=== PATIENT | male | born 1995 | race American Indian/Alaskan Native ===

== ENCOUNTER 2020-11-12 12:55 | Emergency (ER) | payer OTHER ==
[2020-11-12 13:14] VITALS: BP 145/93
--- NOTE | 2020-11-12 13:17 | Event Note ---
ED Screening Note Date of service: 11/12/20 Time: 13:16 ED Screening Note: Patient presents from [facility] with complaints of seizure yesterday He is currently staying at [facility] for SI He denies prior history of seizures He states he has had some mid back pain since falling from the seizure No headache or vision changes per patient This initial assessment/diagnostic orders/clinical plan/treatment(s) is/are subject to change based on patients health status, clinical progression and re- assessment by fellow clinical providers in the ED. Further treatment and workup at subsequent clinical providers discretion. Patient/guardian urged not to elope from the ED as their condition may be serious if not clinically assessed and managed. Initial orders include: Labs
[2020-11-12 13:49] LABS: Basophils % (Auto) 0.4 % (0.0-1.8); Eosinophils # (Auto) 0.1 K/mm3 (0.0-0.4); Eosinophils % (Auto) 0.7 % (0.0-4.3); Hematocrit 41.2 % (35.5-45.6); Hemoglobin 13.7 gm/dl (11.8-15.2); Lymphocytes # (Auto) 1.6 K/mm3 (1.2-5.4); Lymphocytes % (Auto) 14.3 % (13.4-35.0); Mean Corpuscular HGB Conc 33 % (32-34); Mean Corpuscular Volume 83 fl (84-94); Monocytes # (Auto) 0.7 K/mm3 (0.0-0.8); Monocytes % (Auto) 6.1 % (0.0-7.3); Platelet Count 223 K/mm3 (140-440); Red Blood Count 4.98 M/mm3 (3.65-5.03); Red Cell Distribution Width 14.3 % (13.2-15.2)
--- NOTE | 2020-11-12 13:53 | XRay Report ---
EXAMINATION: Lumbar spine radiograph series, 3 views, 11/12/2020 CLINICAL INFORMATION: Back pain after fall COMPARISON: None. FINDINGS: There is normal alignment of the lumbar vertebral bodies. Vertebral body height and intervertebral di sc spaces appear well maintained. No significant bony degenerative changes are noted. A left-sided ureteral stent is present. There is a 1.5 cm left renal calculus. IMPRESSION: 1. No radiographic evidence of acute bony abnormality of the lumbar spine. Signer Name: Yvonne Hoffman MD Signed: 11/12/2020 1:48 PM Workstation Name: [id number]
[2020-11-12 14:04] LABS: Alanine Aminotransferase 52 units/L (7-56); Albumin 4.7 g/dL (3.9-5); BUN/Creatinine Ratio 10; Blood Urea Nitrogen 8 mg/dL (9-20); Calcium 9.4 mg/dL (8.4-10.2); Hemolysis Index 10
[2020-11-12 14:16] LABS: Bilirubin,Urine NEG (Negative); Blood,Urine LG (Negative); Color,Urine Yellow (Yellow); Mucus,Urine FEW /HPF
[2020-11-12 14:21] LABS: Amphetamine Screen,Urine Negative; Benzodiazepines Screen,Urine Negative; Cocaine Screen,Urine Negative; Methadone Screen,Urine Negative; Opiate Screen,Urine Negative
[2020-11-12 14:24] LABS: RBC,Urine < 182.0 /HPF (0.0-6.0)
[2020-11-12 14:41] LABS: Cannabinoid Screen,Urine PRESUMPTIVE POSITIVE
[2020-11-12] MEDS ORDERED: LIDOCAINE-MPF (1%) 10 MG/1 ML VIAL 5 ML INFILTRATI ONE (16:07)
--- NOTE | 2020-11-12 16:12 | Emergency Department Report ---
ED General Adult HPI - General Chief complaint: Seizure Stated complaint: SEIZURE Time Seen by Provider: 11/12/20 13:15 Source: patient, EMS Mode of arrival: Stretcher Limitations: No Limitations - History of Present Illness Initial comments: Patient is a 24-year-old male who presents emergency room with complaints of a possible seizure that occurred yesterday. Patient is currently at 1013 at [facility] and his back supported by a sitter for [place]. The person with the patient did not witness the seizure. Patient states he has never had a sei zure before. He states that he was just told by the staff it appeared to be a seizure. He states he did bite his tongue but denies urinary incontinence. He denies any headache or neck pain. He states he does have lower back pain. He denies any vomiting, diarrhea, abdominal pain, dysuria, hematuria, penile discharge, pain or swelling in the testicles. He has a past medical history of an arm fracture and nephrolithiasis. He states his last kidney stone was approximately 3 months ago. He states that his back pain does not feel related to kidney stones he states he believes it is due to having a seizure and falling onto his back. He states that he was diagnosed with a UTI at a [facility] on 11/09/2020, he states that he is on antibiotics but is not sure what he is taking, his sitter is attempting to contact [place] to see what medication he is on. He endorses marijuana use. - Related Data Previous Rx's Medication Instructions Recorded Last Taken Type Ciprofloxacin HCl [Ciprofloxacin 500 mg PO BID 7 Days #14 tab 11/12/20 Unknown Rx TAB] Doxycycline Hyclate [Doxycycline 100 mg PO BID 7 Days #14 tab 11/12/20 Unknown Rx Hyclate TAB] Naproxen [EC-Naprosyn] 500 mg PO BID PRN #14 tablet. 11/12/20 Unknown Rx Allergies Allergy/AdvReac Type Severity Reaction Status Date / Time No Known Allergies Allergy Unverified 11/12/20 13:11 ED Review of Systems ROS: Stated complaint: SEIZURE Other details as noted in HPI Comment: All other systems reviewed and negative ED Past Medical Hx - Past Medical History Previous Medical History?: No - Surgical History Past Surgical History?: No - Social History Smoking Status: Current Every Day Smoker - Medications Home Medications: Home Medications Medication Instructions Recorded Confirmed Last Taken Type Ciprofloxacin HCl [Ciprofloxacin 500 mg PO BID 7 Days #14 tab 11/12/20 Unknown Rx TAB] Doxycycline Hyclate [Doxycycline 100 mg PO BID 7 Days #14 tab 11/12/20 Unknown Rx Hyclate TAB] Naproxen [EC-Naprosyn] 500 mg PO BID PRN #14 tablet. 11/12/20 Unknown Rx ED Physical Exam - General Limitations: No Limitations General appearance: alert, in no apparent distress - Head Head exam: Present: atraumatic, normocephalic - Eye Eye exam: Present: normal appearance - ENT ENT exam: Present: mucous membranes moist, other (superificial tongue abrasion to the right side of the tongue) - Neck Neck exam: Present: normal inspection, full ROM. Absent: tenderness - Respiratory Respiratory exam: Present: normal lung sounds bilaterally. Absent: respiratory distress, wheezes, rales, rhonchi, stridor, chest wall tenderness, accessory muscle use, decreased breath sounds, prolonged expiratory - Cardiovascular Cardiovascular Exam: Present: regular rate, normal rhythm, normal heart sounds. Absent: systolic murmur, diastolic murmur, rubs, gallop - Back Exam Back exam: Present: normal inspection, full ROM. Absent: CVA tenderness (R), CVA tenderness (L), paraspinal tenderness, vertebral tenderness - Neurological Exam Neurological exam: Present: alert, oriented X3, CN II-XII intact, normal gait. Absent: motor sensory deficit - Psychiatric Psychiatric exam: Present: normal affect, normal mood - Skin Skin exam: Present: warm, dry, intact ED Course Vital Signs 11/12/20 13:10 Temperature 98.7 F Pulse Rate 98 H Respiratory 16 Rate Blood Pressure 145/93 O2 Sat by Pulse 100 Oximetry ED Medical Decision Making - Lab Data Result diagrams: 11/12/20 13:27 11/12/20 13:27 Lab Results 11/12/20 11/12/20 11/12/20 Range/Units 13:27 13:27 Unknown WBC 11.2 H (4.5-11.0) K/mm3 RBC 4.98 (3.65-5.03) M/mm3 Hgb 13.7 (11.8-15.2) gm/dl Hct 41.2 (35.5-45.6) % MCV 83 L (84-94) fl MCH 28 (28-32) pg MCHC 33 (32-34) % RDW 14.3 (13.2-15.2) % Plt Count 223 (140-440) K/mm3 Lymph % (Auto) 14.3 (13.4-35.0) % [place] % (Auto) 6.1 (0.0-7.3) % Eos % (Auto) 0.7 (0.0-4.3) % Baso % (Auto) 0.4 (0.0-1.8) % Lymph # (Auto) 1.6 (1.2-5.4) K/mm3 [place] # (Auto) 0.7 (0.0-0.8) K/mm3 Eos # (Auto) 0.1 (0.0-0.4) K/mm3 Baso # (Auto) 0.0 (0.0-0.1) K/mm3 Seg Neutrophils % 78.5 H (40.0-70.0) % Seg Neutrophils # 8.8 H (1.8-7.7) K/mm3 Sodium 139 (137-145) mmol/L Potassium 4.1 (3.6-5.0) mmol/L Chloride 101.9 (98-107) mmol/L Carbon Dioxide 27 (22-30) mmol/L Anion Gap 14 mmol/L BUN 8 L (9-20) mg/dL Creatinine 0.8 (0.8-1.3) mg/dL Estimated GFR > 60 ml/min BUN/Creatinine Ratio 10 % Glucose 121 H (75-100) mg/dL Calcium 9.4 (8.4-10.2) mg/dL Magnesium 1.90 (1.7-2.3) mg/dL Total Bilirubin 0.50 (0.1-1.2) mg/dL AST 63 H (5-40) units/L ALT 52 (7-56) units/L Alkaline Phosphatase 81 (35-129) units/L Total Protein 7.3 (6.3-8.2) g/dL Albumin 4.7 (3.9-5) g/dL Albumin/Globulin Ratio 1.8 % Urine Color Yellow (Yellow) Urine Turbidity Clear (Clear) Urine pH 6.0 (5.0-7.0) Ur Specific [place] 1.019 (1.003-1.030) Urine Protein 100 mg/dl (Negative) mg/dL Urine Glucose (UA) Neg (Negative) mg/dL Urine Ketones Neg (Negative) mg/dL Urine Blood Lg (Negative) Urine Nitrite Neg (Negative) Urine Bilirubin Neg (Negative) Urine Urobilinogen 2.0 (<2.0) mg/dL Ur Leukocyte Esterase Lg (Negative) Urine WBC (Auto) 18.0 H (0.0-6.0) /HPF Urine RBC (Auto) < 182.0 (0.0-6.0) /HPF U Epithel Cells (Auto) 1.0 (0-13.0) /HPF Urine Mucus Few /HPF Urine Opiates Screen Urine Methadone Screen Ur Barbiturates Screen Ur Phencyclidine Scrn Ur Amphetamines Screen U Benzodiazepines Scrn Urine Cocaine Screen U Marijuana (THC) Screen Drugs of Abuse Note 11/12/20 Range/Units Unknown WBC (4.5-11.0) K/mm3 RBC (3.65-5.03) M/mm3 Hgb (11.8-15.2) gm/dl Hct (35.5-45.6) % MCV (84-94) fl MCH (28-32) pg MCHC (32-34) % RDW (13.2-15.2) % Plt Count (140-440) K/mm3 Lymph % (Auto) (13.4-35.0) % [place] % (Auto) (0.0-7.3) % Eos % (Auto) (0.0-4.3) % Baso % (Auto) (0.0-1.8) % Lymph # (Auto) (1.2-5.4) K/mm3 [place] # (Auto) (0.0-0.8) K/mm3 Eos # (Auto) (0.0-0.4) K/mm3 Baso # (Auto) (0.0-0.1) K/mm3 Seg Neutrophils % (40.0-70.0) % Seg Neutrophils # (1.8-7.7) K/mm3 Sodium (137-145) mmol/L Potassium (3.6-5.0) mmol/L Chloride (98-107) mmol/L Carbon Dioxide (22-30) mmol/L Anion Gap mmol/L BUN (9-20) mg/dL Creatinine (0.8-1.3) mg/dL Estimated GFR ml/min BUN/Creatinine Ratio % Glucose (75-100) mg/dL Calcium (8.4-10.2) mg/dL Magnesium (1.7-2.3) mg/dL Total Bilirubin (0.1-1.2) mg/dL AST (5-40) units/L ALT (7-56) units/L Alkaline Phosphatase (35-129) units/L Total Protein (6.3-8.2) g/dL Albumin (3.9-5) g/dL Albumin/Globulin Ratio % Urine Color (Yellow) Urine Turbidity (Clear) Urine pH (5.0-7.0) Ur Specific [place] (1.003-1.030) Urine Protein (Negative) mg/dL Urine Glucose (UA) (Negative) mg/dL Urine Ketones (Negative) mg/dL Urine Blood (Negative) Urine Nitrite (Negative) Urine Bilirubin (Negative) Urine Urobilinogen (<2.0) mg/dL Ur Leukocyte Esterase (Negative) Urine WBC (Auto) (0.0-6.0) /HPF Urine RBC (Auto) (0.0-6.0) /HPF U Epithel Cells (Auto) (0-13.0) /HPF Urine Mucus /HPF Urine Opiates Screen Negative Urine Methadone Screen Negative Ur Barbiturates Screen Negative Ur Phencyclidine Scrn Negative Ur Amphetamines Screen Negative U Benzodiazepines Scrn Negative Urine Cocaine Screen Negative U Marijuana (THC) Screen Presumptive positive Drugs of Abuse Note Disclamer - Radiology Data Radiology results: report reviewed Ordering Physician: DANIEL AVALOS Date of Service: 11/12/20 Procedure(s): CT head/brain wo con Accession Number(s): [id number] cc: DANIEL AVALOS CT BRAIN: 11/12/2020 INDICATION / CLINICAL INFORMATION: Seizure. COMPARISON: None available. FINDINGS: BRAIN/INTRACRANIAL STRUCTURES: Unenhanced CT images of the brain demonstrate no evidence of acute intracranial abnormality. Ventricles and sulci are normal in size and shape. There is no evidence of ischemic injury, hemorrhage, or mass. There are no abnormal extra-axial fluid collections. EXTRACRANIAL STRUCTURES: Unremarkable. IMPRESSION: Negative unenhanced CT of the brain. All CT scans at this location are performed using dose reduction to ALARA by means of automated exposure control. Signer Name: German Vickers MD Signed: 11/12/2020 4:44 PM Workstation Name: [id number] Transcribed By: DANIEL Dictated By: German Vickers MD Electronically Authenticated By: German Vickers MD Signed Date/Time: 11/12/20 1644 DD/ 1643 TD/TT: Ordering Physician: MARI LEON Date of Service: 11/12/20 Procedure(s): XR spine lumbosacral 2-3V Accession Number(s): [id number] cc: MARI LEON Fluoro Time In Minutes: EXAMINATION: Lumbar spine radiograph series, 3 views, 11/12/2020 CLINICAL INFORMATION: Back pain after fall COMPARISON: None. FINDINGS: There is normal alignment of the lumbar vertebral bodies. Vertebral body height and intervertebral disc spaces appear well maintained. No significant bony degenerative changes are noted. A left-sided ureteral stent is present. There is a 1.5 cm left renal calculus. IMPRESSION: 1. No radiographic evidence of acute bony abnormality of the lumbar spine. Signer Name: Yvonne Hoffman MD Signed: 11/12/2020 1:48 PM Workstation Name: [id number] Transcribed By: ELA Dictated By: Yvonne Hoffman MD Electronically Authenticated By: Yvonne Hoffman MD Signed Date/Time: 11/12/20 1348 DD/ 1347 TD/TT: - Medical Decision Making Patient is a 24-year-old male who presents emergency room with complaints of a possible seizure that occurred yesterday. Patient is currently at 1013 at [place] and his back supported by a sitter for [place]. The person with the patient did not witness the seizure. Patient states he has never had a seizure before. He states that he was just told by the staff it appeared to be a seizure. He states he did bite his tongue but denies urinary incontinence. He denies any headache or neck pain. He states he does have lower back pain. He denies any vomiting, diarrhea, abdominal pain, dysuria, hematuria, penile discharge, pain or swelling in the testicles. He has a past medical history of an arm fracture and nephrolithiasis. He states his last kidney stone was approximately 3 months ago. He states that his back pain does not feel related to kidney stones he states he believes it is due to having a seizure and falling onto his back. He states that he was diagnosed with a UTI at a [facility] on 11/09/2020, he states that he is on antibiotics but is not sure what he is taking, his sitter is attempting to contact [place] to see what m edication he is on. He endorses marijuana use. No CVA tenderness on exam, no midline or paraspinal C-spine, T-spine, L-spine tenderness palpation, no step- offs, no deformities, no focal neuro deficits, superificial tongue abrasion to the right side of the tongue. XR lumbar spine: 1. No radiographic evidence of acute bony abnormality of the lumbar spine. CT head: Negative unenhanced CT of the brain. Labs are stable. UA shows red blood cells and white blood cells. Red blood cells likely secondary to history of ureteral stent. Discussed all results with patient and answered questions. This is patient's first seizure, will not start seizure medication at this time, discussed the importance of neurology follow-up, discussed return precautions. Will treat patient for UTI. Patient given 1 g Rocephin while in the emergency department. Patient given prescription for naproxen, ciprofloxacin, doxycycline. Advised patient Please stop taking the previous antibiotic you are on. Please take medication as prescribed. Increase your water intake. Please avoid marijuana use. Follow-up with a primary care doctor. Follow-up with a neurologist. You are unable to operate a motor vehicle for 6 months after having seizure-like activity and until you have been cleared by primary care doctor or neurologist. Return to emergency room for any new or worsening symptoms. - Differential Diagnosis seizure, drug use, UTI, nephrolithiasis, muscle strain, mass, CVA, ICH Critical care attestation.: If time is entered above; I have spent that time in minutes in the direct care of this critically ill patient, excluding procedure time. ED Disposition Clinical Impression: Seizure UTI (urinary tract infection) Qualifiers: Urinary tract infection type: acute cystitis Hematuria presence: with hematuria Qualified Code(s): N30.01 - Acute cystitis with hematuria Back pain Qualifiers: Back pain location: low back pain Chronicity: acute Back pain laterality: unspecified Sciatica presence: without sciatica Qualified Code(s): M54.5 - Low back pain Disposition: DC-01 TO HOME OR SELFCARE Is pt being admited?: No Does the pt Need Aspirin: No Condition: Stable Instructions: Urinary Tract Infection, Adult, [id number], Seizure, Adult, Seizure, Adult, [id number] Additional Instructions: Please stop taking the previous antibiotic you are on. Please take medication as prescribed. Increase your water intake. Please avoid marijuana use. Follow-up with a primary care doctor. Follow-up with a neurologist. You are unable to operate a motor vehicle for 6 months after having seizure-like act ivity and until you have been cleared by primary care doctor or neurologist. Return to emergency room for any new or worsening symptoms. Prescriptions: Ciprofloxacin HCl [Ciprofloxacin TAB] 500 mg PO BID 7 Days #14 tab Doxycycline Hyclate [Doxycycline Hyclate TAB] 100 mg PO BID 7 Days #14 tab Naproxen [EC-Naprosyn] 500 mg PO BID PRN #14 tablet.dr SOUSA Reason: pain Referrals: PRIMARY MD KARINE [Primary Care Provider] - 2-3 Days ALEXANDER DUNN MD [Staff Physician] - 2-3 Days [facility] [Provider Group] - 2-3 Days [facility], [LAB/CONTRACT] - 2-3 Days WILLARD DAVID MD [Referring] - 2-3 Days Time of Disposition: 17:09 Print Language: MOSOTHO
--- NOTE | 2020-11-12 16:49 | Cat Scan Report ---
CT BRAIN: 11/12/2020 INDICATION / CLINICAL INFORMATION: Seizure. COMPARISON: None available. FINDINGS: BRAIN/INTRACRANIAL STRUCTURES: Unenhanced CT images of the brain demonstrate no evidence of acute int racranial abnormality. Ventricles and sulci are normal in size and shape. There is no evidence of ischemic injury, hemorrhage, or mass. There are no abnormal extra-axial fluid collections. EXTRACRANIAL STRUCTURES: Unremarkable. IMPRESSION: Negative unenhanced CT of the brain. All CT scans at this location are performed using dose reduction to ALARA by means of automated expos ure control. Signer Name: German Vickers MD Signed: 11/12/2020 4:44 PM Workstation Name: [id number]
== END 2020-11-12 17:32 | disposition home or self-care (01) ==
LOC: ED 12:55
DX: G40.909 Epilepsy, unspecified, not intractable, without status epilepticus (principal); N39.0 Urinary tract infection, site not specified; M54.9 Dorsalgia, unspecified; F17.200 Nicotine dependence, unspecified, uncomplicated; Z79.899 Other long term (current) drug therapy
CPT/HCPCS: 36415; 70450; 72100; 80053; 80307; 81001; 83735; 85025; 87086; 96372; 99284; J0696

== ENCOUNTER 2021-09-05 07:51 | Emergency (ER) | payer SELFPAY ==
[2021-09-05] MEDS ORDERED: LORazepam 2 MG/ML VIAL IM ONE (08:00)
[2021-09-05] MEDS ORDERED: ZIPRASIDONE MESYLATE 20 MG VIAL IM ONE (08:00)
--- NOTE | 2021-09-05 08:16 | Emergency Department Report ---
HPI - General Time Seen by Provider: 09/05/21 07:59 - HPI HPI: This patient initially presented by EMS with the complaint of suicidal ideations with a plan to cut his wrist. Per EMS the patient had admitted to some type of psychiatric history and medication noncompliance. Immediately upon arrival to our emergency department the patient jumped off the EMS gurney and began making homicidal threats to the ER staff saying "I'm going to kill you all." He then proceeded to grab things off of the counter along the emergency department and threw them across the department. He did this while he began walking towards the back of the emergency department towards, and possibly into, some of the other patients rooms. The patient then was witnessed getting a fire extinguisher off of the wall and discharging/firing its contents. While the patient has been in this emergency department previously, he was not here with any psychiatric complaints at that time and I did not see any listed diagnosis of psychiatric conditions. ED Past Medical Hx - Social History Smoking Status: Current Every Day Smoker - Medications Home Medications: Home Medications Medication Instructions Recorded Confirmed Last Taken Type Unobtainable 09/05/21 09/05/21 Unknown History ED Review of Systems ROS: Stated complaint: AGGRESSIVE/THREATNING/SUICIDAL Other details as noted in HPI Comment: Unobtainable due to pts medical conditions Physical Exam - Physical Exam Physical Exam: GENERAL: The patient is well-developed well-nourished. HENT: Normocephalic. Atraumatic. Patient has moist mucous membranes. EYES: Extraocular motions are intact. NECK: Supple. Trachea is midline. CHEST/LUNGS: Clear to auscultation. There is no respiratory distress noted. HEART/CARDIOVASCULAR: Regular. There is no tachycardia. There is no murmur. ABDOMEN: Abdomen is soft, nontender. Patient has normal bowel sounds. SKIN: Skin is warm and dry. NEURO: The patient is awake, but uncooperative. No slurred speech. MUSCULOSKELETAL: There is no tenderness or deformity. There is no limitation range of motion. PSYCH: Patient is violent and agitated. Patient is screaming. ED Medical Decision Making - Lab Data Result diagrams: 09/05/21 09:45 09/05/21 09:45 Lab Results 09/05/21 09/05/21 09/05/21 Range/Units 09:45 09:45 09:45 WBC 8.0 (4.5-11.0) K/mm3 RBC 4.37 (3.65-5.03) M/mm3 Hgb 12.0 (11.8-15.2) gm/dl Hct 37.4 (35.5-45.6) % MCV 86 (84-94) fl MCH 27 L (28-32) pg MCHC 32 (32-34) % RDW 14.0 (13.2-15.2) % Plt Count 231 (140-440) K/mm3 Lymph % (Auto) 18.1 (13.4-35.0) % [place] % (Auto) 5.7 (0.0-7.3) % Eos % (Auto) 0.8 (0.0-4.3) % Baso % (Auto) 0.2 (0.0-1.8) % Lymph # (Auto) 1.5 (1.2-5.4) K/mm3 [place] # (Auto) 0.5 (0.0-0.8) K/mm3 Eos # (Auto) 0.1 (0.0-0.4) K/mm3 Baso # (Auto) 0.0 (0.0-0.1) K/mm3 Seg Neutrophils % 75.2 H (40.0-70.0) % Seg Neutrophils # 6.0 (1.8-7.7) K/mm3 Sodium 139 (137-145) mmol/L Potassium 4.0 (3.6-5.0) mmol/L Chloride 105.2 (98-107) mmol/L Carbon Dioxide 22 (22-30) mmol/L Anion Gap 16 mmol/L BUN 16 (9-20) mg/dL Creatinine 0.8 (0.8-1.3) mg/dL Estimated GFR > 60 ml/min BUN/Creatinine Ratio 20 % Glucose 146 H (75-100) mg/dL Calcium 9.2 (8.4-10.2) mg/dL Plasma/Serum Alcohol < 0.01 (0-0.07) % - Medical Decision Making This patient initially called EMS due to suicidal ideations. Immediately upon arrival to the emergency department he became agitated and violent and began making homicidal threats. For these reasons the patient was made a 1013 and placed on ED hold. Once we were able to bailon the patient into a seclusion room he was given appropriate treatment/sedation. Labs thus far have been unremarkable including CBC, metabolic panel and blood alcohol level. We are still waiting for a urine sample for urinalysis and UDS. Vital signs were reassuring including being afebrile. We will continue to monitor this patient during his ED course. Critical Care Time: Yes Critical care time in (mins) excluding proc time.: 35 Critical care attestation.: If time is entered above; I have spent that time in minutes in the direct care of this critically ill patient, excluding procedure time. Critical care time spent on this patient in doing his initial evaluation, IM antipsychotic and antianxiety medications for treatment/sedation of his acute psychosis and violent behavior, calling [facility], ordering and interpretation of labs, multiple reevaluations while in seclusion. Critical Care Time: 35 minutes ED Disposition Clinical Impression: Suicidal ideations, Homicidal ideations, Acute psychosis Disposition: [address] [place] [address] Is pt being admited?: Yes Condition: Stable Time of Disposition: 15:11
[2021-09-05 10:27] LABS: Basophils % (Auto) 0.2 % (0.0-1.8); Eosinophils # (Auto) 0.1 K/mm3 (0.0-0.4); Eosinophils % (Auto) 0.8 % (0.0-4.3); Hematocrit 37.4 % (35.5-45.6); Lymphocytes # (Auto) 1.5 K/mm3 (1.2-5.4); Lymphocytes % (Auto) 18.1 % (13.4-35.0); Mean Corpuscular HGB Conc 32 % (32-34); Mean Corpuscular Volume 86 fl (84-94); Monocytes # (Auto) 0.5 K/mm3 (0.0-0.8); Monocytes % (Auto) 5.7 % (0.0-7.3); Platelet Count 231 K/mm3 (140-440); Red Blood Count 4.37 M/mm3 (3.65-5.03)
[2021-09-05 10:37] LABS: BUN/Creatinine Ratio 20; Blood Urea Nitrogen 16 mg/dL (9-20); Calcium 9.2 mg/dL (8.4-10.2); Hemolysis Index 4
--- NOTE | 2021-09-05 14:15 | Consultation ---
History of Present Illness - Reason for Consult Consult date: 09/05/21 Reason for consult: mental health evaluation - History of Present Psychiatric Illness ED Note:This patient initially presented by EMS with the complaint of suicidal ideations with a plan to cut his wrist. Per EMS the patient had admitted to some type of psychiatric history and medication noncompliance. Immediately upon arrival to our emergency department the patient jumped off the EMS gurney and began making homicidal threats to the ER staff saying "I'm going to kill you all." He then proceeded to grab things off of the counter along the emergency department and threw them across the department. He did this while he began walking towards the back of the emergency department towards, and possibly into, some of the other patients rooms. The patient then was witnessed trying to get a fire extinguisher off of the wall. While the patient has been in this emergency department previously, he was not here with any psychiatric complaints at that time and I did not have any listed diagnosis of psychiatric conditions. The patient was seen this morning in seclusion. Per nurse, patient was recently given IM INJ. Patient is drowsy, unable to assess at this time. PAST PSYCHIATRIC HISTORY: Unable to assess PAST MEDICAL HISTORY: Unable to assess Family Psychiatric History: Unable to assess SOCIAL HISTORY:Unable to assess REVIEW OF SYSTEMS:Unable to assess MENTAL STATUS EXAMINATION: Unable to assess Assessment and Plan (1) Unspecified mood disorder- F31.9 Status: Acute Current Visit: No Status: Acute RECOMMENDATIONS continue 1013 Risks, benefits and alternatives of medications discussed with the patient, questions answered and consent obtained from patient. PSYCHOTHERAPY: Supportive psychotherapy provided MEDICAL: Per primary team DELIRIUM PRECAUTIONS: Please re-orient patient frequently, keep lights on during the day, and minimize benzodiazepines and opiates as these medications could worsen patient's confusion. TRACK REPAIR LABORER: non indicated DISPOSITION: Recommend acute inpatient psychiatric hospitalization at this time. Case discussed with Dr. Jaeger. FOLLOW-UP: Will follow. Thank you for the consult. Please contact with any questions and/or concerns. Medications and Allergies Allergies Allergy/AdvReac Type Severity Reaction Status Date / Time No Known Allergies Allergy Unverified 11/12/20 13:11 Home Medications Medication Instructions Recorded Confirmed Last Taken Type Unobtainable 09/05/21 09/05/21 Unknown History Mental Status Exam - Vital signs Last Vital Signs Temp 98.3 F 09/05/21 08:31 Pulse 82 11/02/21 08:31 Resp 20 09/05/21 08:31 BP 141/100 09/05/21 08:31 Pulse Ox 99 09/05/21 08:31 Results Result Diagrams: 09/05/21 09:45 09/05/21 09:45 Abnormal lab results 09/05/21 09/05/21 Range/Units 09:45 09:45 MCH 27 L (28-32) pg Seg Neutrophils % 75.2 H (40.0-70.0) % Glucose 146 H (75-100) mg/dL All other labs normal.
[2021-09-05 18:16] LABS: Bacteria,Urine 2+ /HPF (Negative); Bilirubin,Urine NEG (Negative); Blood,Urine LG (Negative); Color,Urine Yellow (Yellow); Mucus,Urine 1+ /HPF; Urobilinogen,Urine < 2.0 mg/dL (<2.0)
[2021-09-05 18:20] LABS: Amphetamine Screen,Urine PRESUMPTIVE NEGATIVE; Benzodiazepines Screen,Urine PRESUMPTIVE NEGATIVE; Cannabinoid Screen,Urine PRESUMPTIVE POSITIVE; Cocaine Screen,Urine PRESUMPTIVE NEGATIVE; Methadone Screen,Urine PRESUMPTIVE NEGATIVE; Opiate Screen,Urine PRESUMPTIVE NEGATIVE
[2021-09-05 18:22] LABS: RBC,Urine > 182.0 /HPF (0.0-6.0)
[2021-09-06] MEDS ORDERED: ZIPRASIDONE MESYLATE 20 MG VIAL IM ONE ×3 (01:37→18:46)
[2021-09-06] MEDS ORDERED: diphenhydrAMINE 50 MG/ML VIAL IM ONE (01:37)
[2021-09-06] MEDS ORDERED: LIDOCAINE-MPF (1%) 10 MG/1 ML VIAL 5 ML INFILTRATI ONE (01:38)
[2021-09-06] MEDS ORDERED: AZITHROMYCIN 250 MG TAB PO ONE (01:38)
[2021-09-06] MEDS ORDERED: WATER FOR INJ Sterile (PF) 10 ML ONE ×2 (01:43→18:48)
--- NOTE | 2021-09-06 10:18 | Emergency Department Report ---
Blank Doc - Documentation Documentation: This morning, the patient is cooperative. He is conversant. He is ambulatory to the restroom. We are still awaiting psychiatric disposition. It has been determined he requires admission. We will continue to provide supportive care. He will undergo chemical sedation as needed to keep him from becoming belligerent and attacking staff. We will await psychiatric disposition. Labs have been reviewed.
[2021-09-06] MEDS: cephALEXin 500 MG CAP PO SCH ×3 (10:40→20:59)
--- NOTE | 2021-09-06 10:56 | Progress Note ---
Subjective - Reason for Consult Consult date: 09/06/21 Reason for consult: suicidal ideation - Chief Complaint Chief complaint: The patient was seen this morning , he is calm. he reports hat he got into an argument with his mother, when he woke up the voices started telling him to kill himself. He endorses being depressed states symptoms such as isolating himself, castillo, suicidal ideation and insomnia. He reports having suicidal ideation with a plan to " slit his wrist." he admits having auditory and visual hallucinations. " I see angels and demons." PAST PSYCHIATRIC HISTORY Diagnoses: Bipolar, Schizophrenia Suicide attempts or Self-harm behavior: Yes Prior psychiatric hospitalizations: Yes Substance Abuse history: marijuana Previous psychiatric medications tried: Unable to recall Outpatient treatment: denies PAST MEDICAL HISTORY: Family Psychiatric History: None reported or documented SOCIAL HISTORY Marital Status: Single Living Arrangements:Homeless Employment Status: Unemployed Access to guns/weapons:Denies Education: 9th grade History of Abuse: None reported Legal History: Unknown REVIEW OF SYSTEMS Constitutional: Negative for weight loss ENT: Negative for stridor Respiratory: Negative for cough or hemoptysis All other systems reviewed and are negative MENTAL STATUS EXAMINATION General Appearance and Behavior: Age appropriate, good hygiene, wearing appropriate clothes, good eye contact, cooperative with questioning Cooperation: Participating/engaged Psychomotor Behavior: unremarkable and within normal limits Mood:depressed Affect and affective range: congruent with mood Thought Process:goal directed Thought Content: suicidal Speech: Normal volume, Regular rate and rhythm. Intellectual Functioning: Average Suicidal Ideation: Yes Homicidal Ideation: Denies Hallucinations: auditory/visual Delusions: None elicited Impulse Control: Limited Insight and Judgment: limited insight and poor judgment Memory: Normal Attention: Normal Orientation: Alert, oriented. Assessment and Plan (1) Schizoaffective Disorder Current Visit: No Status: Acute RECOMMENDATIONS Continue 1013 Start Seroquel 25 mg po BID Start Depakote 125mg po BID Risks, benefits and alternatives of medications discussed with the patient, questions answered and consent obtained from patient. PSYCHOTHERAPY: Supportive psychotherapy provided MEDICAL: Per primary team DELIRIUM PRECAUTIONS: Please re-orient patient frequently, keep lights on during the day, and minimize benzodiazepines and opiates as these medications could worsen patient's confusion. ACCOUNTING ANALYST: non indicated DISPOSITION: Recommend acute inpatient psychiatric hospitalization at this time. FOLLOW-UP: Will follow. Thank you for the consult. Please contact with any questions and/or concerns. Medications and Allergies Mental Status Exam - Vital signs Last Vital Signs Temp 97.9 F 09/06/21 08:06 Pulse 77 09/06/21 08:06 Resp 18 09/06/21 08:06 BP 131/90 09/06/21 08:06 Pulse Ox 98 09/06/21 08:55
[2021-09-06] MEDS: DIVALPROEX DR 125 MG TAB PO SCH ×2 (12:27→22:04)
[2021-09-06] MEDS: QUEtiapine 25 MG TAB PO SCH ×2 (12:27→22:04)
[2021-09-06] MEDS ORDERED: LORazepam 2 MG/ML VIAL IM ONE (23:28)
[2021-09-07] MEDS ORDERED: ZIPRASIDONE MESYLATE 20 MG VIAL IM ONE (01:31)
[2021-09-07] MEDS ORDERED: WATER FOR INJ Sterile (PF) 10 ML ONE (01:37)
[2021-09-07] MEDS ORDERED: HALOPERIDOL LACTATE 5 MG/1 ML INJ IM PRN (07:33)
[2021-09-07] MEDS ORDERED: diphenhydrAMINE 25 MG CAP PO PRN (07:33)
[2021-09-07] MEDS ORDERED: LORazepam 2 MG/ML VIAL IM PRN (07:33)
--- NOTE | 2021-09-07 07:39 | Event Note ---
Date: 09/07/21 The patient was evaluated in the emergency department for symptoms described in the history of present illness. He/she was evaluated in the context of the global COVID-19 pandemic, which necessitated consideration that the patient might be at risk for infection with the virus that causes COVID-19. Institutional protocols and algorithms that pertain to the evaluation of patients at risk for COVID-19 are in a state of rapid change based on information released by regulatory bodies including the CDC and federal and state organizations. These policies and algorithms were followed during the patient's care in the emergency department. Please note that these policies, procedures and recommendations changed on a rapid basis. Laboratory studies, vital signs, nursing documentation, ER documentation, and psychiatric documentation are reviewed and appreciated. Nursing team reports that patient is defecating in his room, and smearing feces on the wall. They also report that the patient is masturbating and ejaculating, and at times, licking his ejaculate. Ozul-[id number] evaluation is requested. At this point in time, the patient is si tting down, eating a meal tray, in no acute distress. He is breathing comfortably, and moving 4 extremities. The patient is obese with a body mass index of 31.3. Patient will be changed to clear liquid diet. The patient was deemed medically suitable for psychiatric disposition and placement during his initial ER evaluation. The patient continues to remain medically suitable for psychiatric placement and disposition. He is currently pending psychiatric placement. Vital Signs 09/05/21 09/06/21 09/06/21 08:31 08:06 08:55 Temperature 98.3 F 97.9 F Pulse Rate 82 77 Respiratory 20 18 Rate Blood Pressure 141/100 Blood Pressure 131/90 [Right] O2 Sat by Pulse 99 98 98 Oximetry 09/06/21 09/06/21 10:54 20:03 Temperature 98.4 F Pulse Rate 97 H Respiratory 18 Rate Blood Pressure Blood Pressure 137/92 [Right] O2 Sat by Pulse 98 98 Oximetry Lab Results 09/05/21 09/05/21 09/05/21 Range/Units 09:45 09:45 09:45 WBC 8.0 (4.5-11.0) K/mm3 RBC 4.37 (3.65-5.03) M/mm3 Hgb 12.0 (11.8-15.2) gm/dl Hct 37.4 (35.5-45.6) % MCV 86 (84-94) fl MCH 27 L (28-32) pg MCHC 32 (32-34) % RDW 14.0 (13.2-15.2) % Plt Count 231 (140-440) K/mm3 Lymph % (Auto) 18.1 (13.4-35.0) % Nolan % (Auto) 5.7 (0.0-7.3) % Eos % (Auto) 0.8 (0.0-4.3) % Baso % (Auto) 0.2 (0.0-1.8) % Lymph # (Auto) 1.5 (1.2-5.4) K/mm3 Nolan # (Auto) 0.5 (0.0-0.8) K/mm3 Eos # (Auto) 0.1 (0.0-0.4) K/mm3 Baso # (Auto) 0.0 (0.0-0.1) K/mm3 Seg Neutrophils % 75.2 H (40.0-70.0) % Seg Neutrophils # 6.0 (1.8-7.7) K/mm3 Sodium 139 (137-145) mmol/L Potassium 4.0 (3.6-5.0) mmol/L Chloride 105.2 (98-107) mmol/L Carbon Dioxide 22 (22-30) mmol/L Anion Gap 16 mmol/L BUN 16 (9-20) mg/dL Creatinine 0.8 (0.8-1.3) mg/dL Estimated GFR > 60 ml/min BUN/Creatinine Ratio 20 % Glucose 146 H (75-100) mg/dL Calcium 9.2 (8.4-10.2) mg/dL Urine Color (Yellow) Urine Turbidity (Clear) Urine pH (5.0-7.0) Ur Specific [place] (1.003-1.030) Urine Protein (Negative) mg/dL Urine Glucose (UA) (Negative) mg/dL Urine Ketones (Negative) mg/dL Urine Blood (Negative) Urine Nitrite (Negative) Urine Bilirubin (Negative) Urine Urobilinogen (<2.0) mg/dL Ur Leukocyte Esterase (Negative) Urine WBC (Auto) (0.0-6.0) /HPF Urine RBC (Auto) (0.0-6.0) /HPF U Epithel Cells (Auto) (0-13.0) /HPF Urine Bacteria (Auto) (Negative) /HPF Urine Mucus /HPF Urine Yeast (Budding) /HPF Urine Opiates Screen Urine Methadone Screen Ur Barbiturates Screen Ur Phencyclidine Scrn Ur Amphetamines Screen U Benzodiazepines Scrn Urine Cocaine Screen U Marijuana (THC) Screen Drugs of Abuse Note Plasma/Serum Alcohol < 0.01 (0-0.07) % Coronavirus (PCR) (Negative) 09/05/21 09/05/21 09/05/21 Range/Units 10:20 Unknown Unknown WBC (4.5-11.0) K/mm3 RBC (3.65-5.03) M/mm3 Hgb (11.8-15.2) gm/dl Hct (35.5-45.6) % MCV (84-94) fl MCH (28-32) pg MCHC (32-34) % RDW (13.2-15.2) % Plt Count (140-440) K/mm3 Lymph % (Auto) (13.4-35.0) % Nolan % (Auto) (0.0-7.3) % Eos % (Auto) (0.0-4.3) % Baso % (Auto) (0.0-1.8) % Lymph # (Auto) (1.2-5.4) K/mm3 Nolan # (Auto) (0.0-0.8) K/mm3 Eos # (Auto) (0.0-0.4) K/mm3 Baso # (Auto) (0.0-0.1) K/mm3 Seg Neutrophils % (40.0-70.0) % Seg Neutrophils # (1.8-7.7) K/mm3 Sodium (137-145) mmol/L Potassium (3.6-5.0) mmol/L Chloride (98-107) mmol/L Carbon Dioxide (22-30) mmol/L Anion Gap mmol/L BUN (9-20) mg/dL Creatinine (0.8-1.3) mg/dL Estimated GFR ml/min BUN/Creatinine Ratio % Glucose (75-100) mg/dL Calcium (8.4-10.2) mg/dL Urine Color Yellow (Yellow) Urine Turbidity Slightly-cloudy (Clear) Urine pH 6.0 (5.0-7.0) Ur Specific [place] 1.020 (1.003-1.030) Urine Protein 30 mg/dl (Negative) mg/dL Urine Glucose (UA) Neg (Negative) mg/dL Urine Ketones Neg (Negative) mg/dL Urine Blood Lg (Negative) Urine Nitrite Neg (Negative) Urine Bilirubin Neg (Negative) Urine Urobilinogen < 2.0 (<2.0) mg/dL Ur Leukocyte Esterase Lg (Negative) Urine WBC (Auto) 123.0 H (0.0-6.0) /HPF Urine RBC (Auto) > 182.0 (0.0-6.0) /HPF U Epithel Cells (Auto) 1.0 (0-13.0) /HPF Urine Bacteria (Auto) 2+ (Negative) /HPF Urine Mucus 1+ /HPF Urine Yeast (Budding) 2+ /HPF Urine Opiates Screen Presumptive negative Urine Methadone Screen Presumptive negative Ur Barbiturates Screen Presumptive negative Ur Phencyclidine Scrn Presumptive negative Ur Amphetamines Screen Presumptive negative U Benzodiazepines Scrn Presumptive negative Urine Cocaine Screen Presumptive negative U Marijuana (THC) Screen Presumptive positive Drugs of Abuse Note Disclamer Plasma/Serum Alcohol (0-0.07) % Coronavirus (PCR) Negative (Negative)
[2021-09-07 08:04] VITALS: BP 151/90
[2021-09-07] MEDS: cephALEXin 500 MG CAP PO SCH (09:51)
[2021-09-07] MEDS: DIVALPROEX DR 125 MG TAB PO SCH (09:52)
[2021-09-07] MEDS: QUEtiapine 25 MG TAB PO SCH (09:52)
--- NOTE | 2021-09-07 10:13 | Progress Note ---
Subjective - Reason for Consult Consult date: 09/07/21 Reason for consult: mental health evaluation - Chief Complaint Chief complaint: The patient was seen this morning , he is calm and reports doing well. The patient reports sleep and appetitie as good. He denies any current suicidal/homicidal ideation and denies hallucinations. REVIEW OF SYSTEMS Constitutional: Negative for weight loss ENT: Negative for stridor Respiratory: Negative for cough or hemoptysis All other systems reviewed and are negative MENTAL STATUS EXAMINATION General Appearance and Behavior: Age appropriate, good hygiene, wearing appropriate clothes, good eye contact, cooperative with questioning Cooperation: Participating/engaged Psychomotor Behavior: unremarkable and within normal limits Mood:ok Affect and affective range: congruent with mood Thought Process:goal directed Thought Content: Not suicidal Speech: Normal volume, Regular rate and rhythm. Intellectual Functioning: Average Suicidal Ideation: Denies Homicidal Ideation: Denies Hallucinations: Denies Delusions: None elicited Impulse Control: Limited Insight and Judgment: limited insight and fair judgment Memory: Normal Attention: Normal Orientation: Alert, oriented. Assessment and Plan (1) Schizoaffective Disorder Current Visit: No Status: Acute RECOMMENDATIONS Discontinue 1013 Continue Seroquel 25 mg po BID Continue Depakote 250mg po BID Risks, benefits and alternatives of medications discussed with the patient, questions answered and consent obtained from patient. PSYCHOTHERAPY: Supportive psychotherapy provided MEDICAL: Per primary team DELIRIUM PRECAUTIONS: Please re-orient patient frequently, keep lights on during the day, and minimize benzodiazepines and opiates as these medications could worsen patient's confusion. 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 Commissioning Specialist will provide patient with psychiatric out patient resources. FOLLOW-UP: Will sign off. Please contact with any questions and/or concerns. Medications and Allergies Mental Status Exam - Vital signs Last Vital Signs Temp 98.0 F 09/07/21 08:02 Pulse 90 09/07/21 08:02 Resp 20 09/07/21 08:02 BP 151/90 09/07/21 08:02 Pulse Ox 98 09/07/21 08:02
== END 2021-09-07 11:38 | disposition home or self-care (01) ==
LOC: EEVIPCON 07:51 → ED 07:51
DX: R45.851 Suicidal ideations (principal); R45.850 Homicidal ideations; Z20.822 Contact with and (suspected) exposure to COVID-19; F23 Brief psychotic disorder; F17.200 Nicotine dependence, unspecified, uncomplicated; Z79.899 Other long term (current) drug therapy
CPT/HCPCS: 36415; 80048; 80307; 81001; 85025; 96372; 99291; J1200; J2060; J3486; U0003; 80320; 99285; G0480

== ENCOUNTER 2021-09-08 05:33 | Emergency (ER) | payer SELFPAY ==
[2021-09-08 05:43] VITALS: BP 141/87
[2021-09-08] MEDS ORDERED: KETOROLAC 60 MG/2 ML INJ IM ONE (06:57)
[2021-09-08 07:59] LABS: Basophils % (Auto) 0.3 % (0.0-1.8); Eosinophils % (Auto) 0.2 % (0.0-4.3); Hematocrit 40.2 % (35.5-45.6); Hemoglobin 12.9 gm/dl (11.8-15.2); Lymphocytes # (Auto) 1.9 K/mm3 (1.2-5.4); Lymphocytes % (Auto) 15.6 % (13.4-35.0); Mean Corpuscular HGB Conc 32 % (32-34); Mean Corpuscular Volume 82 fl (84-94); Monocytes # (Auto) 0.9 K/mm3 (0.0-0.8); Monocytes % (Auto) 7.3 % (0.0-7.3); Platelet Count 269 K/mm3 (140-440); Red Cell Distribution Width 13.8 % (13.2-15.2)
[2021-09-08 08:01] LABS: Bacteria,Urine 1+ /HPF (Negative); Bilirubin,Urine NEG (Negative); Blood,Urine LG (Negative); Color,Urine Yellow (Yellow); Mucus,Urine FEW /HPF; Urobilinogen,Urine < 2.0 mg/dL (<2.0)
[2021-09-08 08:10] LABS: RBC,Urine > 182.0 /HPF (0.0-6.0)
[2021-09-08 08:23] LABS: Alanine Aminotransferase 30 units/L (7-56); Albumin 4.7 g/dL (3.9-5); BUN/Creatinine Ratio 19; Blood Urea Nitrogen 17 mg/dL (9-20); Calcium 9.3 mg/dL (8.4-10.2); Hemolysis Index 0
--- NOTE | 2021-09-08 08:36 | XRay Report ---
ABDOMEN 1 VIEW 09/08/2021 8:00 AM INDICATION / CLINICAL INFORMATION: renal colic. COMPARISON: None available. FINDINGS: TUBES / LINES: There is a double-J ureteral stent on the left. BOWEL GAS PATTERN: No significant abnormality. FREE AIR / EXTRALUMINAL GAS: None. ADDITIONAL FINDINGS: There is bilateral nephrolithiasis. There is a 8 mm stone in the right kidney. T here is a 5 mm stone projecting at the level the upper pole the left kidney and a 2.2 cm stone projec ting at the level of the left renal pelvis. IMPRESSION: 1. There is bilateral nephrolithiasis. There is a double-J ureteral stent on the left. Signer Name: Joaquim Caban MD Signed: 09/08/2021 8:31 AM Workstation Name: [id number]
--- NOTE | 2021-09-08 09:14 | Emergency Department Report ---
ED General Adult HPI - General Chief complaint: Abdominal Pain Stated complaint: ABDOMINAL PAIN Time Seen by Provider: 09/08/21 06:46 Source: EMS Mode of arrival: Ambulatory Limitations: No Limitations - History of Present Illness Initial comments: The patient presents to the emergency department chief complaint of bilateral flank pain that has been present for the last couple of days per the patient. Patient has a history of kidney stones and states this feels similar to other episodes. Patient denies fever or chest pain. There is no nausea or vomiting -: Gradual Location: back Radiation: other (Bilateral groin) Severity scale (0 -10): 6 Quality: sharp Consistency: constant Improves with: none Worsens with: none Associated Symptoms: denies other symptoms Treatments Prior to Arrival: none - Related Data Previous Rx's Medication Instructions Recorded Last Taken Type Divalproex Dr [DepaKOTE DR] 250 mg PO BID 30 Days #60 tablet 09/07/21 Unknown Rx QUEtiapine [SEROquel] 25 mg PO BID 30 Days #60 tablet 09/07/21 Unknown Rx Ketorolac [Toradol] 10 mg PO Q6H PRN #12 tablet 09/08/21 Unknown Rx cephALEXin [Keflex] 500 mg PO BID #14 capsule 09/08/21 Unknown Rx Allergies Allergy/AdvReac Type Severity Reaction Status Date / Time No Known Allergies Allergy Verified 09/08/21 05:39 ED Review of Systems ROS: Stated complaint: ABDOMINAL PAIN Other details as noted in HPI Comment: All other systems reviewed and negative Constitutional: denies: chills, fever Eyes: denies: eye pain, eye discharge, vision change ENT: denies: ear pain, throat pain Respiratory: denies: cough, shortness of breath, wheezing Cardiovascular: denies: chest pain, palpitations Endocrine: no symptoms reported Gastrointestinal: denies: abdominal pain, nausea, diarrhea Genitourinary: denies: urgency, dysuria Musculoskeletal: denies: back pain, joint swelling, arthralgia Skin: denies: rash, lesions Neurological: denies: headache, weakness, paresthesias Psychiatric: denies: anxiety, depression Hematological/Lymphatic: denies: easy bleeding, easy bruising ED Past Medical Hx - Past Medical History Hx Kidney Stones: Yes Hx Psychiatric Treatment: Yes (bipolar and schizophrenia) - Social History Smoking Status: Current Every Day Smoker - Medications Home Medications: Home Medications Medication Instructions Recorded Confirmed Last Taken Type Divalproex Dr [DepaKOTE DR] 250 mg PO BID 30 Days #60 tablet 09/07/21 Unknown Rx QUEtiapine [SEROquel] 25 mg PO BID 30 Days #60 tablet 09/07/21 Unknown Rx Ketorolac [Toradol] 10 mg PO Q6H PRN #12 tablet 09/08/21 Unknown Rx cephALEXin [Keflex] 500 mg PO BID #14 capsule 09/08/21 Unknown Rx ED Physical Exam - General Limitations: No Limitations General appearance: alert, in no apparent distress - Head Head exam: Present: atraumatic, normocephalic - Eye Eye exam: Present: normal appearance, PERRL, EOMI - ENT ENT exam: Present: mucous membranes moist - Respiratory Respiratory exam: Present: respiratory distress. Absent: normal lung sounds bilaterally - Cardiovascular Cardiovascular Exam: Present: regular rate, normal rhythm - GI/Abdominal GI/Abdominal exam: Present: soft, normal bowel sounds. Absent: distended - Extremities Exam Extremities exam: Present: normal inspection - Neurological Exam Neurological exam: Present: alert, oriented X3, motor sensory deficit. Absent: CN II-XII intact - Psychiatric Psychiatric exam: Present: normal affect, normal mood - Skin Skin exam: Present: warm, dry, intact, normal color. Absent: rash ED Course Vital Signs 09/08/21 05:40 Temperature 98.3 F Pulse Rate 94 H Respiratory 18 Rate Blood Pressure 141/87 [Left] O2 Sat by Pulse 99 Oximetry ED Medical Decision Making - Lab Data Result diagrams: 09/08/21 07:28 09/08/21 07:28 Critical care attestation.: If time is entered above; I have spent that time in minutes in the direct care of this critically ill patient, excluding procedure time. ED Disposition Clinical Impression: Nephrolithiasis, UTI (urinary tract infection) Disposition: 01 HOME / SELF CARE / HOMELESS Is pt being admited?: No Does the pt Need Aspirin: No Condition: Stable Instructions: Urinary Tract Infection, Adult, Kidney Stones, [id number] Additional Instructions: Return if worse Referrals: PRIMARY CARE,MD [Primary Care Provider] - 3-5 Days Time of Disposition: 09:13
== END 2021-09-08 09:30 | disposition home or self-care (01) ==
LOC: ED 05:33
DX: N20.0 Calculus of kidney (principal); N39.0 Urinary tract infection, site not specified; F31.9 Bipolar disorder, unspecified; F20.9 Schizophrenia, unspecified; F17.200 Nicotine dependence, unspecified, uncomplicated; Z79.899 Other long term (current) drug therapy
CPT/HCPCS: 36415; 74018; 80053; 81001; 83690; 85025; 87086; 96372; 99284; J1885